=== PATIENT | male | born 1950 | race Caucasian/White ===

== ENCOUNTER 2017-03-02 13:37 | Emergency (ER) | payer MEDICAID ==
[~2017-03-02] VITALS: Ht 170.2 cm; Wt 86.2 kg
[2017-03-02 13:49] VITALS: BP 131/79
--- NOTE | 2017-03-02 15:12 | NUR ---
PT CAME TO ER DUE TO LACERATION ON RIGHT 5TH FINGER;PT STATES IT HAPPENED LAST WEDNESDAY;PT TOOK TYLENOL FOR THE PAIN AND IT HELPED PT A LITTLE BIT.RT 5 TH FINGER IS SLIGHTLY SWOLLEN;NO REDNESS/PUS NOTED;DENIES ANY MEDICAL HISTORY;DENIES NUMBNESS /TINGLING SENSATION ON RT HAND;DENIES CP/SOB/F/N/V;AAOX4;NO ACUTE DISTRESS NOTED AT THIS TIME;HOB ELEVATED;NEEDS ATTENDED;SAFETY MEASURES INSTITUTED; MADE AWARE OF PT'S CONDITION.
[2017-03-02] MEDS ORDERED: BUPIVACAINE-MPF 0.5% 10 ML VIAL INJ ONE (16:00)
--- NOTE | 2017-03-02 16:20 | NUR ---
PT SITTING ON BED; NO ACUTE DISTRESS NOTED AT THIS TIME;WILL CONTINUE TO MONITOR PT.
[2017-03-02] MEDS ORDERED: NEOMYCIN/POLYMYXIN/BACITRACIN 0.9 GM/1 PKT TP ONE (16:45)
--- NOTE | 2017-03-02 16:45 | NUR ---
SENSORCINE WAS GIVEN BY ERMD DURING PROCEDURE
--- NOTE | 2017-03-02 16:53 | NUR ---
XRAY AT BEDSIDE
--- NOTE | 2017-03-02 17:28 | NUR ---
PT LYING ON BED COMFORTABLY;NO ACUTE DISTRESS NOTED AT THIS TIME;WILL CONTINUE TO MONITOR PT
--- NOTE | 2017-03-02 18:00 | NUR ---
Patient discharged with v/s stable. Written and verbal after care instructions given and explained. Patient alert, oriented and verbalized understanding of instructions. Ambulatory with steady gait. All questions addressed prior to discharge. ID band removed. Patient advised to follow up with PMD. Opportunity to ask questions provided and answered.
[2017-03-02 18:01] VITALS: BP 139/76
== END 2017-03-02 18:00 | disposition home or self-care (01) ==
LOC: MED 13:37
DX: S61.216A Laceration without foreign body of right little finger without damage to nail, initial encounter (principal); W22.8XXA Striking against or struck by other objects, initial encounter; Y93.89 Activity, other specified; Y92.89 Other specified places as the place of occurrence of the external cause; Y99.8 Other external cause status
CPT/HCPCS: 10021; 73140; 99284; J3490; Q0092

== ENCOUNTER 2017-09-27 14:02 | Emergency (ER) | payer SELFPAY ==
[~2017-09-27] VITALS: Ht 170.2 cm; Wt 87.7 kg
[2017-09-27 14:13] VITALS: BP 131/72
--- NOTE | 2017-09-27 16:10 | NUR ---
C/O LEFT GROIN PAIN----ADMITS LEFT INGUINAL HERNIA YRS BUT RECENT LAST 4 DAYS ITS BECOME MORE TROUBLESOME TO PUSH BACK IN
--- NOTE | 2017-09-27 16:29 | NUR ---
PT TO U/S THEN CT VIA WHEEL CHAIR
--- NOTE | 2017-09-27 17:04 | NUR ---
CONTINUES TO WAIT FOR RADIOLOGY RESULTS---DISPO PENDING---PT HOLDING CONVERSATION WITH AT BEDSIDE----NO VIRGILIO RAMÍREZ
[2017-09-27 17:36] VITALS: BP 152/73
--- NOTE | 2017-09-27 17:37 | NUR ---
Patient discharged with v/s stable. Written and verbal after care instructions given and explained. Patient alert, oriented and verbalized understanding of instructions. Ambulatory with steady gait. All questions addressed prior to discharge. ID band removed. Patient advised to follow up with PMD. Rx of MOTRIN given. Patient educated on indication of medication including possible reaction and side effects. Opportunity to ask questions provided and answered. CD HANDED TO PT
== END 2017-09-27 17:37 | disposition home or self-care (01) ==
LOC: MED 14:02
DX: K40.20 Bilateral inguinal hernia, without obstruction or gangrene, not specified as recurrent (principal); K57.90 Diverticulosis of intestine, part unspecified, without perforation or abscess without bleeding
CPT/HCPCS: 74176; 76870; 81002; 99284; Q0092

== ENCOUNTER 2018-05-20 21:55 | Emergency (ER) | payer OTHER, MEDICAID ==
[~2018-05-20] VITALS: Ht 172.7 cm; Wt 92.2 kg
[~2018-05-20 21:55] MED LIST: ASPI81CT95 PO; ATOR20TA PO; LISI-420 PO
[2018-05-20 21:58] VITALS: BP 121/64
--- NOTE | 2018-05-20 21:58 | NUR ---
PATIENT TRIAGED. VSS STABLE. SENT TO ER LOBBY.
--- NOTE | 2018-05-20 22:00 | NUR ---
PATIENT EXPRESSING WISH TO BE SEEN RIGHT AWAY. PT WAS EDUCATED THAT PATIENT WILL BE SEEN IN ORDER OF ARRIVAL AND BY MEDICAL NEED.
--- NOTE | 2018-05-21 00:45 | NUR ---
PATIENT LEFT WITHOUT BEING SEEN BY DR. LI. NO FURTHER CARE PROVIDED FOR PATIENT.
== END 2018-05-21 00:45 | disposition left against medical advice (07) ==
LOC: MED 21:55
DX: I10 Essential (primary) hypertension (principal); Z53.21 Procedure and treatment not carried out due to patient leaving prior to being seen by health care provider

== ENCOUNTER 2019-07-25 19:25 | Emergency (ER) | payer OTHER, MEDICAID ==
[~2019-07-25] VITALS: Ht 170.2 cm; Wt 89.8 kg
[2019-07-25 19:49] VITALS: BP 162/83
--- NOTE | 2019-07-25 19:53 | NUR ---
PT AMBULATED TO BED 12.
--- NOTE | 2019-07-25 20:24 | NUR ---
PT CAME TO ER C/O OF RIGHT HAND PAIN X 2 WEEKS. PT STATES "I FELL 2 WEEKS AGO AND MY RIGHT HAND STILL HURTS" PAIN LEVEL 10/10 WITH MOVEMENT. NO REDNESS, SWELLING OR BRUISING NOTED. NKA. MED HX: HTN. SAFETY MEASURES IN PLACE. WAITING FOR ERMD TO EVALUATE PT.
[2019-07-25] MEDS ORDERED: IBUPROFEN 800 MG TAB PO ONE (20:40)
[2019-07-25 21:04] VITALS: BP 162/83
--- NOTE | 2019-07-25 21:04 | NUR ---
Patient discharged with v/s stable. Written and verbal after care instructions given and explained. Patient alert, oriented and verbalized understanding of instructions. Ambulatory with steady gait. All questions addressed prior to discharge. ID band removed. Patient advised to follow up with PMD. Rx of motrin was given. Patient educated on indication of medication including possible reaction and side effects. Opportunity to ask questions provided and answered.
== END 2019-07-25 21:04 | disposition home or self-care (01) ==
LOC: MED 19:25
DX: S62.101A Fracture of unspecified carpal bone, right wrist, initial encounter for closed fracture (principal); M25.512 Pain in left shoulder; I10 Essential (primary) hypertension; Z79.899 Other long term (current) drug therapy; Z79.82 Long term (current) use of aspirin; W01.0XXA Fall on same level from slipping, tripping and stumbling without subsequent striking against object, initial encounter; Y93.89 Activity, other specified; Y92.89 Other specified places as the place of occurrence of the external cause; Y99.8 Other external cause status
CPT/HCPCS: 73000; 73110; 73130; 99283

== ENCOUNTER 2020-09-27 15:10 | Emergency (ER) | payer OTHER, MEDICAID ==
[~2020-09-27] VITALS: Ht 170.2 cm; Wt 94.8 kg
[2020-09-27 15:27] VITALS: BP 166/86
--- NOTE | 2020-09-27 15:36 | NUR ---
TO ED 07, AMBULATORY.
--- NOTE | 2020-09-27 16:18 | NUR ---
NO NURSING INTERVENTIONS DONE. NO MEDS GIVEN.
[2020-09-27 16:24] VITALS: BP 166/86
--- NOTE | 2020-09-27 16:24 | NUR ---
Patient discharged with v/s stable. Written and verbal after care instructions given and explained. Patient verbalized understanding. Ambulatory with steady gait. All questions addressed prior to discharge. Advised to follow up with PMD.
== END 2020-09-27 16:24 | disposition home or self-care (01) ==
LOC: MED 15:10
DX: H93.13 Tinnitus, bilateral (principal); I10 Essential (primary) hypertension; Z79.899 Other long term (current) drug therapy
CPT/HCPCS: 99281

== ENCOUNTER 2020-10-18 23:21 | Emergency (ER) | payer OTHER, MEDICAID ==
[~2020-10-18] VITALS: Ht 170.2 cm; Wt 95.3 kg
[2020-10-18 23:30] VITALS: BP 204/107
--- NOTE | 2020-10-18 23:34 | NUR ---
PT AMBULATED TO BED 04.
[2020-10-18] MEDS ORDERED: METOPROLOL 25 MG TAB PO ONE (23:45)
--- NOTE | 2020-10-18 23:45 | NUR ---
COVERING PRIMARY RN--- SEE COMPLETE ASSESSMENT FOR ADDITIONAL INFORMATION.
--- NOTE | 2020-10-19 | NUR ---
LAB AT BEDSIDE
[2020-10-19 00:31] LABS: ANION GAP 14.7 (8-16); CARBON DIOXIDE 25.7 mmol/L (21-32); POTASSIUM 3.4 mmol/L (3.5-5.1)
--- NOTE | 2020-10-19 00:53 | NUR ---
PT AMBULATED TO WITH STEADY GAIT
--- NOTE | 2020-10-19 00:58 | NUR ---
ERMD STATES OK TO DC WITH HR OF 53 AND BP OF 190/90
[2020-10-19 01:01] VITALS: BP 190/90
--- NOTE | 2020-10-19 01:01 | NUR ---
DCPatient discharged with v/s stable. Written and verbal after care instructions given and explained. Patient verbalized understanding. Ambulatory with steady gait. All questions addressed prior to discharge. Advised to follow up with PMD.
== END 2020-10-19 01:01 | disposition home or self-care (01) ==
LOC: MED 23:21
DX: I10 Essential (primary) hypertension (principal); E78.5 Hyperlipidemia, unspecified
CPT/HCPCS: 36415; 80048; 99285

== ENCOUNTER 2020-12-03 18:05 | Emergency (ER) | payer OTHER, MEDICAID ==
[~2020-12-03] VITALS: Ht 167.6 cm; Wt 59.0 kg
--- NOTE | 2020-12-03 19:30 | NUR ---
PATIENT WAS BIB SON FOR SOB UPON AMBULATION. PER SON, HE HAS BEEN SEEN FOR PRIMARY CARE PROVIDER FOR A CARDIAC TESTS; STATES THAT HE HAS SOB WHEN WALKING. PATIENT ALSO COMPLAINS OF SORE THROAT X 1 DAY. NKDA PMH: UNKNOWN
--- NOTE | 2020-12-03 19:50 | NUR ---
PATIENT LEFT WITHOUT BEING SEEN BY DR. NIETO. NO FURTHER CARE PROVIDED FOR PATIENT.
== END 2020-12-03 19:50 | disposition left against medical advice (07) ==
LOC: MED 18:05
DX: R06.02 Shortness of breath (principal); Z53.21 Procedure and treatment not carried out due to patient leaving prior to being seen by health care provider

== ENCOUNTER 2023-03-17 00:50 | Emergency (ER) | payer OTHER ==
[~2023-03-17] VITALS: Ht 170.2 cm; Wt 97.1 kg
[~2023-03-17 00:50] MED LIST changes: -LISI-420 PO; +LISI20TA29 PO
[2023-03-17 01:17] VITALS: BP 189/96
--- NOTE | 2023-03-17 01:27 | NUR ---
Pt triaged and placed in ED RM 11. Report given to NOLA Obregon.
--- NOTE | 2023-03-17 01:38 | NUR ---
ER Dr. Alaniz at bedside evaluating patient.
[2023-03-17] MEDS ORDERED: ACETAMINOPHEN EXTRA STRENGTH 500 MG TAB PO ONE (01:45)
[2023-03-17 02:13] LABS: BASOPHILS % (AUTO) 0.8 % (0.0-2.0); EOSINOPHILS # (AUTO) 0.1 K/uL (0-0.4); HEMATOCRIT 40.3 % (36-52); LYMPHOCYTES # (AUTO) 1.5 K/uL (2.0-11.5); LYMPHOCYTES % (AUTO) 29.8 % (20.5-51.1); MEAN CORPUSCULAR HEMOGLOBIN 31 pg (27-31); MEAN CORPUSCULAR HGB CONC 35 g/dL (33-37); MEAN CORPUSCULAR VOLUME 90.5 fL (80-94); MONOCYTES # (AUTO) 0.4 K/uL (0.8-1.0); MONOCYTES % (AUTO) 7.9 % (1.7-9.3); NEUTROPHILS # (AUTO) 2.9 K/uL (1.8-7.7); NEUTROPHILS % (AUTO) 58.5 % (42.2-75.2); PLATELET COUNT (AUTO) 154 K/uL (140-450); RED BLOOD CELL COUNT(AUTO) 4.45 MIL/uL (4.20-6.10); RED CELL DISTRIBUTION WIDTH 13.6 % (11.6-13.7); WHITE BLOOD COUNT (AUTO) 4.9 K/uL (4.8-10.8)
[2023-03-17 02:37] LABS: ANION GAP 11.1 (8-16); CARBON DIOXIDE 26.4 mmol/L (21-32); POTASSIUM 3.5 mmol/L (3.5-5.1)
[2023-03-17 02:39] LABS: CREATININE 1.2 mg/dL (0.6-1.3); TOTAL BILIRUBIN 0.4 mg/dL (0.0-1.0)
[2023-03-17 02:40] LABS: ALBUMIN 3.8 g/dL (3.4-5.0)
--- NOTE | 2023-03-17 03:30 | NUR ---
Pt with HR 44, ERMD made aware with no new orders at this time. Pt is awake and alert at this time.
[2023-03-17 05:41] VITALS: BP 132/74
== END 2023-03-17 05:42 | disposition home or self-care (01) ==
LOC: MED 00:50
DX: I10 Essential (primary) hypertension (principal); R51.9 Headache, unspecified; E78.00 Pure hypercholesterolemia, unspecified; Z79.899 Other long term (current) drug therapy; Z79.82 Long term (current) use of aspirin
CPT/HCPCS: 36415; 70450; 71045; 80053; 83880; 84484; 85025; 93005; 99285; Q0092

== ENCOUNTER 2023-09-05 23:25 | Emergency (ER) | payer OTHER ==
[~2023-09-05] VITALS: Ht 170.2 cm; Wt 90.7 kg
[~2023-09-05 23:25] MED LIST changes: +CIPR7.5S RIGHT EAR
[2023-09-06 00:28] VITALS: BP 161/82; PULSE 58; RESP 16; TEMP 97.4; O2SAT 97
[2023-09-06 03:57] LABS: APPEARANCE,URINE CLEAR (CLEAR); BILIRUBIN,URINE NEGATIVE (NEGATIVE); BLOOD, URINE NEGATIVE (NEGATIVE); COLOR,URINE YELLOW (YELLOW); LEUKOCYTE ESTERASE ,URINE NEGATIVE (NEGATIVE); NITRITE, URINE NEGATIVE (NEGATIVE); PROTEIN,URINE NEGATIVE (NEGATIVE); UGLUCOSE NEGATIVE (NEGATIVE); UROBILINOGEN,URINE 0.2 EU/dL (0.2 - 1)
[2023-09-06] MEDS ORDERED: MIRABULK PO (04:18)
[2023-09-06] MEDS ORDERED: HYDR25SU91 RC (04:18)
[2023-09-06 04:42] VITALS: BP 161/82; PULSE 58; RESP 16; TEMP 97.4; O2SAT 97
== END 2023-09-06 04:42 | disposition home or self-care (01) ==
LOC: MED 23:25
DX: K64.9 Unspecified hemorrhoids (principal); K62.5 Hemorrhage of anus and rectum; I10 Essential (primary) hypertension; Z79.899 Other long term (current) drug therapy
CPT/HCPCS: 81003; 99283